=== PATIENT | male | born 1960 | race Caucasian/White ===

== ENCOUNTER 2018-03-18 11:39 | Emergency (ER) | payer OTHER ==
[~2018-03-18] VITALS: Ht 165.1 cm; Wt 79.4 kg
[2018-03-18] MEDS ORDERED: DEPAKOTE ER250 MG (11:53)
[2018-03-18] MEDS ORDERED: TEMAZEPAM30 MG (11:54)
== END 2018-03-18 12:50 | disposition home or self-care (01) ==
LOC: ER 11:39
DX: L55.1 Sunburn of second degree (principal); L56.8 Other specified acute skin changes due to ultraviolet radiation; X32.XXXA Exposure to sunlight, initial encounter; Y93.89 Activity, other specified; Y92.832 Beach as the place of occurrence of the external cause; Y99.8 Other external cause status